=== PATIENT | female | born 1985 | race Two or more races ===

== ENCOUNTER 2022-05-10 09:55 | Emergency (ER) | payer BC, OTHER ==
[~2022-05-10] VITALS: Ht 149.9 cm; Wt 47.6 kg
[2022-05-10 09:55] VITALS: BP 121/78
[2022-05-10] MEDS ORDERED: IBUPROFEN 600 MG TABLET PO ONE (10:30)
[2022-05-10] MEDS ORDERED: IBUPROFEN 600 MG TABLET ONE (10:36)
--- NOTE | 2022-05-10 10:41 | NUR ---
waiver signed by the patient
[2022-05-10] MEDS ORDERED: IBUP-1953 PO (12:46)
[2022-05-10] MEDS ORDERED: METH-647 PO (12:46)
--- NOTE | 2022-05-10 13:10 | NUR ---
Patient discharged to home in stable condition. Written and verbal after care instructions given. Patient verbalizes understanding of instruction.
== END 2022-05-10 13:10 | disposition home or self-care (01) ==
LOC: ER 10:01
DX: S30.0XXA Contusion of lower back and pelvis, initial encounter (principal); M54.50 Low back pain, unspecified; Z88.2 Allergy status to sulfonamides; W18.30XA Fall on same level, unspecified, initial encounter; Y93.89 Activity, other specified; Y92.89 Other specified places as the place of occurrence of the external cause; Y99.8 Other external cause status
CPT/HCPCS: 72131-TC